=== PATIENT | female | born 1970 | race Caucasian/White ===

== ENCOUNTER 2023-05-31 10:28 | Emergency (ER) | payer BC, SELFPAY ==
[2023-05-31 10:36] VITALS: BP 151/100
--- NOTE | 2023-05-31 11:11 | ED.GENMED ---
History of Present Illness
<Steff Gentile PA-C - Last Filed: 05/31/23 13:34>
General
Chief Complaint: Head Injury
Source: patient
Exam Limitations: none
Time Seen by Provider: 05/31/23 11:09
Nursing documentation reviewed up to this point in time: agreed with
Travel History
Have you had any contact with someone who has COVID-19?: No
Do you have any symptoms of coronavirus? Fever > 100 degrees, chills, cough, shortness of breath, sore throat, loss of taste or smell, muscle aches, or headache?: No
History of Present Illness
History of Present Illness:
This is a 53-year-old female with past medical history of multiple sclerosis presenting to emergency department today with right-sided headache, dizziness, and nausea following head trauma. This fall occurred 3 days ago. She fell down more than 5
stairs, falling forward and landing on the right side of her head. She states that at the time of the injury, she did not lose consciousness however she had subsequent 2 episodes of nausea, vomiting, and dizziness. She states that since then, she
has not had any further episodes of nausea and vomiting however she has been persistently dizzy. She states that when she walks, she gets a sensation that the room feels like spinning, however this sensation usually subsides when he sits down. She
denies decrease in her vision, numbness or tingling to the upper extremities, abdominal pain, chest pain, shortness of breath, or any other injuries. Patient was evaluated by her primary care provider at [facility], who wanted her to report
to the emergency department for CT scan further evaluation.
Past History
<Steff Gentile PA-C - Last Filed: 05/31/23 13:34>
Past History
ED Past Medical History: Other (Multiple sclerosis, vit d deficiency)
ED Past Surgical History: Other (Sinus surgery)
Social History
Tobacco: Non-smoker
Alcohol: Occasional
Drug: None
Personal:
Living: with family
Employment: Employed
Review of Systems
<Steff Gentile PA-C - Last Filed: 05/31/23 13:34>
Review of Systems
All Other Systems: ROS reviewed and negative except as documented in HPI and ROS
Phy Exam
<Steff Gentile PA-C - Last Filed: 05/31/23 13:34>
Physical Exam
Physical Exam:
Vitals: Patient is hypertensive, however vital signs are stable
General: Patient is well-appearing, no acute distress
Head: There is some soft tissue swelling overlying the temporal region, temporal region of the head is tender to palpation.
Ears: No drainage, no hemotympanum, bilateral tympanic membranes intact
Eyes: Conjunctiva clear, no drainage bilaterally. Extraocular eye movements intact, no nystagmus
Cardiac: Regular rate, no tenderness palpation of the external chest wall
Pulm: Normal respiratory effort
Abdomen: No abdominal tenderness
Musculoskeletal: Patient has full range of motion of bilateral upper extremities, 5 out of 5 strength of bilateral upper extremities. No bony tenderness palpation to right upper extremity.
Neuro: Patient is awake and alert. Cranial nerves II through XII intact. [id number] testing, [id number]-[id number] testing intact. Gait normal. No focal neurologic deficit.
Course
<Steff Gentile PA-C - Last Filed: 05/31/23 13:34>
Orders/Labs/Results
Orders:
Orders
05/31/23 11:24
CT Cervical Spine W/o Iv Contr Urgent
Reason For Exam: neck pain and swelling following trauma
CT Head W/o Iv Contrast Urgent
Comment:
Reason For Exam: nausea/vomiting following head trauma
Vital Signs
Initial and Last Documented VS:
Initial Vital Signs
Temp Pulse Resp BP Pulse Ox
97.7 F 60 16 151/100 99
05/31/23 10:36 05/31/23 10:36 05/31/23 10:36 05/31/23 10:36 05/31/23 10:36
Last Documented Vital Signs
Temp Pulse Resp BP Pulse Ox
97.7 F 60 16 151/100 99
05/31/23 10:36 05/31/23 10:36 05/31/23 10:36 05/31/23 10:36 05/31/23 10:36
<Daniel Bowling DO - Last Filed: 05/31/23 13:13>
Orders/Labs/Results
Orders:
Orders
05/31/23 11:24
CT Cervical Spine W/o Iv Contr Urgent
Reason For Exam: neck pain and swelling following trauma
CT Head W/o Iv Contrast Urgent
Comment:
Reason For Exam: nausea/vomiting following head trauma
Vital Signs
Initial and Last Documented VS:
Initial Vital Signs
Temp Pulse Resp BP Pulse Ox
97.7 F 60 16 151/100 99
05/31/23 10:36 05/31/23 10:36 05/31/23 10:36 05/31/23 10:36 05/31/23 10:36
Last Documented Vital Signs
Temp Pulse Resp BP Pulse Ox
97.7 F 60 16 151/100 99
05/31/23 10:36 05/31/23 10:36 05/31/23 10:36 05/31/23 10:36 05/31/23 10:36
<Steff Gentile PA-C - Last Filed: 05/31/23 13:34>
MDM/Problems Addressed
Differential Diagnosis Includes:
Differentials include intracerebral hemorrhage, epidural hematoma, parietal skull fracture, temporal skull fracture, concussion, tension headache, cervical strain
MDM/Problems Addressed:
Headache, head trauma
Neck pain
dizziness

Will obtain CT scan of the head and neck
Chronic conditions affecting care: HTN and Neurological disorder (MS)
Acute Exacerbation and/or Progression of Chronic Illness: HTN
<Steff Gentile PA-C - Last Filed: 05/31/23 13:34>
*Critical Care Note
Total Time (30-74mins, 75-104mins- exclusive of procedures): Not Applicable
Data Reviewed
Review of Other/Old Records Reveals: Records (Reviewed ER physician documentation from 12/20/2020, reviewed ER physician documentation from 05/05/2017)
Source: patient
<Steff Gentile PA-C - Last Filed: 05/31/23 13:34>
Patient Management
Escalation/DeEscalation of care consider admission/obs:
53-year-old female past medical history as presenting to the emergency department today with right-sided headache, dizziness, nausea, following a fall down the stairs that occurred 3 days ago. Considering the mechanism of injury, persistent
dizziness, and nausea vomiting at the time of injury, and soft tissue swelling overlying the scalp, CT scan of the head and neck were obtained which was negative for any acute intracranial abnormality, and the cervical spine CT showed no acute
fracture or misalignment of the cervical spine. Educated patient regarding concussions advised patient to take 2 weeks off of work if possible. 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
her symptoms. Advised patient to return to to her PCP in 2 weeks for reevaluation of her symptoms.
ED Attending Note
<NICHOLAS Sibley Last Filed: 05/31/23 13:34>
-
Portions of this chart may have been created with voice recognition software.� Occasional wrong word or��sound alike� substitutions may have occurred due to the inherent limitations of voice recognition software.
<Daniel Bowling DO - Last Filed: 05/31/23 13:13>
ED Attending Note
Patient seen and examined by attending physician: Yes
I performed a history and physical exam of patient and discussed management with resident, I reviewed resident's note and agree with documented findings and plan of care.: Yes
ED Attending Note:
I reviewed and agree with history and treatment plan by Steff Gentile. My exam revealed well-appearing 53-year-old female, ambulates without difficulty, no neurologic deficits. Stable for discharge after negative head and cervical spine CT.
Concussion precautions given.
Discharge Plan
Departure
Patient Disposition: Home (Routine Discharge)
Date of Disposition: 05/31/23
Time of Disposition: 13:06
Patient with high blood pressure during this ER visit?: Yes
Condition: Good
Discharge Problem:
Concussion
Instructions: Concussion, Adult (DC)
Prescriptions:
No Action
pantoprazole 40 MG tablet,delayed release (DR/EC)
40 mg PO DAILY Qty: 30 0RF
Referrals:
Mohit Wyatt, DO [Family Provider] -
Stand Alone Forms: Return to Work
Activity Restrictions/Additional Instructions:
Please follow-up with your primary care provider in 2 weeks for reevaluation, and to check in on your symptoms.
Please avoid screen time as best as possible, please time for brain rest for at least 2 weeks.
Please return for any concerning signs or symptoms
Interventions
Interventions:
*Risk Screen - Suicide Last Done: 05/31/23 10:36
*General Assessment Last Done: 05/31/23 10:36
*Neglect/Abuse Screening Last Done: 05/31/23 10:36
ED- Fall Risk Assessment Last Done: 05/31/23 13:25
*ED COVID-19 Vaccine History Last Done: 05/31/23 13:25
*Nursing Disposition Last Done: 05/31/23 13:25
ED- Neurological Assessment Last Done: 05/31/23 13:25
ED-Skin Assessment Last Done: 05/31/23 13:25
Discharge Date and Time
Discharge Date/Time: 05/31/23 13:26
== END 2023-05-31 13:26 | disposition home or self-care (01) ==
LOC: EMR 10:28
PROVIDERS: EMERGENCY PHYSICIAN Emergency Medicine; FAMILY PHYSICIAN Family Medicine
DX: S06.0X0A Concussion without loss of consciousness, initial encounter (principal); R11.2 Nausea with vomiting, unspecified; M54.2 Cervicalgia; W10.9XXA Fall (on) (from) unspecified stairs and steps, initial encounter; G35 Multiple sclerosis; E55.9 Vitamin D deficiency, unspecified
CPT/HCPCS: 99284; 70450; 72125

== ENCOUNTER → 2024-01-18 10:26 | Outpatient (REF) | payer BC, SELFPAY | LOC: HWRAD 10:26 | PROVIDERS: ATTENDING PHYSICIAN Physician Assistant | DX: R10.11 Right upper quadrant pain (principal) | CPT/HCPCS: 76700 ==